=== PATIENT | male | born 2000 | race Caucasian/White ===

== ENCOUNTER 2024-12-07 19:50 | Emergency (ER) | payer OTHER, SELFPAY ==
--- NOTE | 2024-12-07 19:48 | ECG_ITS ---
APPROVED REPORT Exam: Resting ECG HR:90 bpm ECG Measurements Heart Rate 90 AXES [place] 140 P 94 QRSd 107 QRS 104 QT 349 T 68 QTc 397 Conclusion SINUS RHYTHM POSSIBLE RIGHT ATRIAL ENLARGEMENT [0.25mV P-WAVE] RIGHT AXIS DEVIATION [QRS AXIS > 100] ABNORMAL ECG UNCONFIRMED REPORT Electronically signed by : ASHISH MARRERO, 12/09/2024 23:04:47
[2024-12-07 20:00] VITALS: BP 127/63; PULSE 73; RESP 18; TEMP 36.8; O2SAT 98; BMI 23.0
--- OUTSIDE RECORDS SUMMARY | 2024-12-07 20:01 | XMS_ITS | Patient Health Record ---
Author Organization [facility] [place] Address [address] [place] [address] Care Team Providers Care Cullet Washer Name Role Phone SCOUT MONAHAN Unavailable [phone] Reason For Referral No Information Medications Medication SIG (Take, Route, Frequency, Duration) Notes Start Date End Date Status Cetirizine HCl 10 MG 1 tablet Orally Onc e a day; Duration: 30 day(s) 01/13/2022 Active diphenhydrAMINE HCl 25 MG 1 capsule at b edtime as needed Orally Once a day; Duration: 14 day(s) 01/13/2022 Active Problems Problem Type SNOMED Code ICD Code Onset Dates Problem Status W/U Status Risk Notes Problem Cocaine abuse (87519920) Cocaine abuse, uncomplicated (F14.10) Active confirmed Problem Allergic rhinitis (50942690) Allergic rhinitis (J30.9) Active confirmed Plan Of Treatment No Information Insurance Providers Payer Name Payer Address Payer Phone Subscriber Number Group Number Insured Name Patient Relationship to Insured Coverage Start Date Coverage End Date [facility] MEDICA[employer]-[place] [address] [address] [place] [phone] [id number] GEOVANNA DIALLO Self - patient is the insured
--- NOTE | 2024-12-07 20:07 | XR_ITS ---
PROCEDURE INFORMATION: Exam: XR Chest Exam date and time: 12/07/2024 8:02 PM Age: 24 years old Clinical indication: Other: Chest pain when taking deep breath TECHNIQUE: Imaging protocol: Radiologic exam of the chest. Views: 2 views. COMPARISON: No relevant prior studies available. FINDINGS: Lungs: Unremarkable. No consolidation. Pleural spaces: Unremarkable. No pleural effusion. No pneumothorax. Heart/Mediastinum: Unremarkable. No cardiomegaly. Bones/joints: Unremarkable. IMPRESSION: No acute findings.
--- NOTE | 2024-12-07 20:09 | ED_ITS ---
Discharge Plan Disposition Chief Complaint: Chest Pain Prescriptions Prescriptions: No Action metronidazole 500 mg tablet 2,000 mg PO ONCE 1 Days Qty: 4 0RF Referrals Follow up/Referrals: Provider,Referral, [Primary Care Provider, Medical] - See instructions Print Language Print Language: Macedonian Discharge ED Provider: Gwen Pritchard Adult HPI General Chief complaint: Chest Pain Stated complaint: chest pain Time Seen by Provider: 12/07/24 20:09 Mode of Arrival: Ambulatory Source of Information: Patient and Significant Other Description of Symptoms (Recalled from ER Triage Doc. by RN): c/o pain in collar bone and lower chest pain that started 2 days ago. SO reports that pt lifted a tanning bed a few days ago and had a fall resulting in hitting the floor in their home. pt denies any loc or injuries. reports the pain increases with breathing. motrin and aspirin boat captain History of Present Illness HPI narrative: Patient is a 24-year-old male with no significant past medical history who presents to the emergency department with chest pain for 4 days. Patient states that is intermittent in nature will intermittently radiate up into the shoulder. Patient states that he has pain with deep breathing, patient denies any abdominal pain nausea vomiting or diarrhea. Denies any shortness of breath. Patient denies any recent upper respiratory symptoms including fevers cough chills runny nose or congestion. Patient has no cardiac history. She does not take any daily medications. Patient did not take any medications prior to arrival. Related Data Previous Rx's ?Medication ?Instructions ?Recorded metronidazole 500 mg tablet 2,000 mg (4 x 500 mg) PO O NCE 1 04/11/24 day #4 tabs Allergies Allergy/AdvReac Type Severity Reaction Status Date / Time No Known Allergies Allergy Verified 04/11/24 14:47 [facility] Disclaimer: The information contained in this section may have been updated after the patient was seen, as this information can be updated by other users. Social History Smoking Status: Current every day smoker alcohol intake: never current occupational status: other Travel in the last 8 weeks?: None ROS Obtained: Yes All systems reviewed & no additional complaints except as documented and Yes Systems reviewed as appropriate & no additional complaints except as documented Physical Exam General General appearance: alert and in no apparent distress Head Head exam: atraumatic, normocephalic and normal inspection Eye Eye exam: Present normal appearance, PERRL and EOMI; Absent scleral icterus ENT ENT exam: Present normal exam and normal external ear exam Neck Neck exam: Present normal inspection and full ROM Chest Chest inspection: Present normal inspection and symmetric chest wall rise Respiratory Respiratory exam: Present normal lung sounds bilaterally; Absent respiratory distress or wheezes Cardiovascular Cardiovascular exam: Present regular rate, normal rhythm, normal heart sounds and other (No chest wall tenderness) Abdominal Exam Abdominal exam: Present soft and distention; Absent tenderness, guarding or rebound Extremities Exam Extremities exam: Present normal inspection and full ROM Back Exam Back exam: Present normal inspection and full ROM Neurological Exam Neurological exam: Present alert and oriented X3 Psychiatric Psychiatric exam: Present normal affect and normal mood Skin Skin exam: Present warm and dry Medical Decision Making Medical Records Medical records reviewed: Yes I reviewed the patient's medical records. Screening: Per USPSTF and CDC recommendations, given the prevalence of disease in our region, it is our hospital?s policy to screen for HIV and viral Hepatitis for all patients aged 18 and over and those with ongoing risk factors. Jp Inquiry Pt receiving controlled substance: No Vital Signs: 12/07/24 20:00 Temperature 98.3 F Temperature Source Oral Pulse Rate [Left Radial] 73 Respiratory Rate 18 Blood Pressure [Right Arm] 127/63 Blood Pressure Mean [Right Arm] 84 Blood Pressure Source [Right Arm] Automatic Cuff Blood Pressure Position [Right Arm] Sitting 02 Sat by Pulse Oximetry 98 Oxygen Delivery Method Room Air Lab Data Lab results reviewed: Yes I reviewed the patient's lab results. Lab Results 12/07/24 19:50: WBC 11.3 H, RBC 4.93, Hgb 15.3, Hct 43.8, MCV 88.8, MCH 31.0, MCHC 34.9, RDW 12.3, Plt Count 297, MPV 11.0 H, Neut % (Auto) 58.3, Lymph % (Auto) 29.8, [place] % (Auto) 7.8, Eos % (Auto) 3.3, Baso % (Auto) 0.5, Neut # (Auto) 6.6, Lymph # (Auto) 3.4, [place] # (Auto) 0.9, Eos # (Auto) 0.4, Baso # (Auto) 0.1, D-Dimer 0.60 H, Sodium 137, Potassium 3.5, Chloride 101, Carbon Dioxide 26, Anion Gap 13.5, BUN 15, Creatinine 0.70, Estimated Creat Clear 176, Estimated GFR 137, Est GFR ( Amer) 166, Glucose 99, Calcium 9.3, Total Bilirubin 0.9, AST 39, ALT 42, Alkaline Phosphatase 113, Troponin I < 0.01, Total Protein 7.1, Albumin 4.5, Globulin 2.6, Albumin/Globulin Ratio 1.7, Lipase 34 12/07/24 19:50 12/07/24 19:50 Orders (Tests/Meds): ED MEDICATIONS Discontinued Medications Generic Name Dose Route Start Last Admin Trade Name Damian PRN Reason Stop Dose Admin Acetaminophen 1,000 mg 12/07/24 20:07 12/07/24 21:18 Acetaminophen 500mg Tab PO 12/07/24 20:08 1,000 mg ONCE ONE Administration Ketorolac Tromethamine 30 mg 12/07/24 20:07 12/07/24 21:17 Ketorolac 30mg/Ml Vial IV 12/07/24 20:08 30 mg ONCE ONE Administration Methocarbamol 500 mg 12/07/24 20:08 12/07/24 21:18 Methocarbamol 500mg Tablet PO 12/07/24 20:09 500 mg ONCE ONE Administration ORDERS Category Date Time Status CXR 2 view (NOT portable) [XR chest 2V] Stat Exams 12/07/24 20:07 Taken CBC w/Auto Diff [Complete Blood Count Auto Diff] Stat Lab 12/07/24 19:50 Completed CMP [Comprehensive Metabolic Panel] Stat Lab 12/07/24 19:50 Completed D-Dimer Stat Lab 12/07/24 19:50 Completed HIV Combo Stat Lab 12/07/24 19:50 Received Hepatitis C Ab Qual. W/ RFX Stat Lab 12/07/24 19:50 Received Lipase Stat Lab 12/07/24 19:50 Completed Trop I [Troponin I] Stat Lab 12/07/24 19:50 Completed Medical Decision Narrative: Patient is a 24-year-old male with no significant past medical history who presented to the emergency department with chest pain. On arrival, patient was hemodynamically stable with unremarkable vital signs Differential includes but not limited to costochondritis, musculoskeletal spasm, ACS/[place], arrhythmia, pneumonia, amongst others. Patient was given Tylenol and Toradol for symptom control in addition to Robaxin on arrival. Patient's labs were reviewed and interpreted by me patient's labs were reviewed and interpreted by myself: Patient's LFTs are at his baseline. Patient's CT imaging including CT head were reviewed and interpreted by myself: CT head showed no acute intracranial pathology. Patient's labs were reviewed and interpreted by myself: CBC showed mild leukocytosis of 11, hemoglobin was stable D-dimer mildly elevated at 0.60. CMP was unremarkable initial troponin less than 0.01. Lipase normal. EKG was reviewed and interpreted by myself and showed normal sinus rhythm without acute T or T wave changes concerning for ischemia. Given that patient's chest pain had been present for 3 days I did not feel that a second troponin was warranted. Patient's D-dimer was mildly elevated however negative by years criteria for pulmonary embolism. At this time given patient's unremarkable workup I felt the patient was appropriate for discharge home. Return precautions were discussed and patient was discharged home in stable condition. Critical Care Critical Care Time Critical Care Time: No
[2024-12-07 20:17] LABS: Hematocrit 43.8 % (42.0-52.0); Hemoglobin 15.3 g/dL (14.1-18.0); Immature Granulocytes % 0.3 %; Mean Corpuscular HGB Conc 34.9 g/dL (31.8-35.4); Mean Corpuscular Hemoglobin 31.0 pg (27.0-31.2); Mean Corpuscular Volume 88.8 fl (80-94); Nucleated Red Blood Cells % 0 %; Platelet Count 297 K/mm3 (142-424); Red Blood Count 4.93 M/mm3 (4.60-6.20); Red Cell Distribution Width-SD 40.3 fL; White Blood Count 11.3 K/mm3 (4.8-10.8)
[2024-12-07 20:23] LABS: Alanine Aminotransferase 42 U/L (12-78); Albumin Level 4.5 g/dl (3.5-5.0); Albumin/Globulin Ratio 1.7 (1.1-1.8); Alkaline Phosphatase 113 U/L (38-126); Anion Gap 13.5 mEq/L (5-15); Aspartate Amino Transferase 39 U/L (17-59); Bilirubin,Total 0.9 mg/dl (0.2-1.3); Blood Urea Nitrogen 15 mg/dl (9-20); Calcium 9.3 mg/dl (8.4-10.2); Carbon Dioxide 26 mmol/L (22.0-30.0); Chloride 101 mmol/L (98-107); Creatinine Clearance Estimated 176 mL/min (50-200); Creatinine,Serum 0.70 mg/dl (0.66-1.25); Estimated Glomerular Filt Rate 137 ml/min (>60); GFR (African American) 166 ML/MIN (>60); Globulin 2.6 g/dL (1.3-3.2); Glucose 99 mg/dl (74-100); Potassium 3.5 mmoL/L (3.5-5.1); Sodium 137 mmol/L (136-145); Total Protein,Serum 7.1 g/dl (6.3-8.2)
[2024-12-07 20:27] LABS: D-Dimer 0.60 ug/mL (0.0-0.5)
[2024-12-07 20:36] LABS: Troponin I < 0.01 ng/ml (0.00-0.034)
[2024-12-07 20:43] LABS: Lipase 34 U/L (23-300)
[2024-12-07] MEDS: KETOROLAC 30MG/ML VIAL 30 MG IV (21:17)
[2024-12-07] MEDS: METHOCARBAMOL 500MG TABLET 500 MG PO (21:18)
[2024-12-07] MEDS: ACETAMINOPHEN 500MG TAB 1000 MG PO (21:18)
[2024-12-07 21:28] LABS: Hepatitis C Ab Qual. W/ RFX NEGATIVE (Negative)
[2024-12-07 21:37] VITALS: BP 121/54; PULSE 83; RESP 16; TEMP 36.7; O2SAT 97
== END 2024-12-07 21:38 | disposition home or self-care (01) ==
PROVIDERS: Emergency Provider Student in an Organized Health Care Education/Training Program
DX: R07.89 Other chest pain (principal); F17.210 Nicotine dependence, cigarettes, uncomplicated; X50.0XXA Overexertion from strenuous movement or load, initial encounter
CPT/HCPCS: 71046; 80053; 83690; 84484; 85025; 85378; 86803; 87389; 93005; 96374; 99283; 99284; J1885